=== PATIENT | female | born 1965 | race Asian ===

== ENCOUNTER → 2021-12-30 10:13 | Outpatient (CLI) | payer OTHER, SELFPAY ==
--- NOTE | ~2021-12-30 | MM_ITS ---
EXAMINATION: MM screening deepika BI w heidi HISTORY: Screening mammogram TECHNIQUE: Craniocaudal and mediolateral oblique 3-D tomosynthesis images were obtained and synthetic 2-D images were generated. Bilateral rotated lateral CC views. CAD analysis was submitted and interp reted. COMPARISON: 10/02/2018 bilateral screening mammogram and complete bilateral breast ultrasound 08/22/2017, 04/26/2016 bilateral screening mammogram examinations BREAST PARENCHYMAL COMPOSITION: The breasts are heterogeneously dense, which may obscure small masses . FINDINGS: There is no evidence of suspicious mass, calcification, or architectural distortion to sugg est malignancy in either breast. There has been no suspicious interval change. IMPRESSION: 1. No mammographic evidence of malignancy. 2. Recommend routine screening mammography in one year. BI-RADS Category 1: Negative Reviewed, dictated and finalized at location A.
== END ==
DX: Z12.31 Encounter for screening mammogram for malignant neoplasm of breast (principal)
CPT/HCPCS: 77063; 77067

== ENCOUNTER 2024-11-22 13:23 | Outpatient (CLI) | payer OTHER, SELFPAY ==
--- NOTE | ~2024-11-22 | MM_ITS ---
EXAMINATION: MM screening deepika BI w heidi HISTORY: Screening TECHNIQUE: Craniocaudal and mediolateral oblique 3-D tomosynthesis images were obtained and synthetic 2-D images were generated. CAD analysis was submitted and interpreted. COMPARISON: Comparison to multiple prior studies sequentially, with oldest reviewed study dated 04/26. BREAST PARENCHYMAL COMPOSITION: Dense: The breasts are heterogeneously dense, which may obscure small masses FINDINGS: There is a subtle obscured mass in the medial aspect of the left breast on CC view, middle third. The right breast is stable without evidence for malignancy. IMPRESSION: 1. Subtle obscured left breast mass medially on CC view, middle third. 2. Additional mammographic views and possible breast ultrasound are recommended. BI-RADS Category 0: Incomplete: Needs additional imaging evaluation. Reviewed, dictated and finalized at location B. IMPRESSION: 1. Subtle obscured left breast mass medially on CC view, middle third. 2. Additional mammographic views and possible breast ultrasound are recommended . BI-RADS Category 0: Incomplete: Needs additional imaging evaluation.
== END 2024-11-22 13:24 | disposition home or self-care (01) ==
LOC: MICIMG 13:24
PROVIDERS: PCP Family Medicine; Visit Provider Family Medicine
DX: Z12.31 Encounter for screening mammogram for malignant neoplasm of breast (principal); R92.8 Other abnormal and inconclusive findings on diagnostic imaging of breast
CPT/HCPCS: 77063; 77067

== ENCOUNTER 2024-12-17 08:54 | Outpatient (CLI) | payer OTHER, SELFPAY ==
--- NOTE | ~2024-12-17 | MMUS_ITS ---
EXAMINATION: MM diagnostic deepika LT w heidi, US breast LT limited HISTORY: Left breast mass TECHNIQUE: Additional 3-D tomosynthesis images of the left breast were performed and synthetic 2-D im ages were generated. CAD analysis was submitted and interpreted. High resolution limited left breast ultrasound was performed. COMPARISON: 11/22/2024, 12/30/2021 BREAST PARENCHYMAL COMPOSITION:Dense: The breasts are heterogeneously dense, which may obscure small masses. FINDINGS: MAMMOGRAPHIC FINDINGS: The area of concern at the inner left breast effaces on spot compression. No definite mass lesion or distortion seen. No suspicious microcalcification. ULTRASOUND: At the 12:00 position left breast, 4 cm from the nipple, there is a 6 x 5 x 7 mm hypoechoic round mas s with posterior through transmission. IMPRESSION: 7 mm hypoechoic mass at the 12:00 position left breast, 4 cm from the nipple. This is probably benig n. Six-month follow-up ultrasound recommended to reassess. BI-RADS category 3, probably benign findings. Reviewed, dictated and finalized at location M. IMPRESSION: 7 mm hypoechoic mass at the 12:00 position left breast, 4 cm from the nipple. This is probably benign. Six-month follow-up ultrasound recommended to reassess . BI-RADS category 3, probably benign findings.
== END 2024-12-17 08:55 | disposition home or self-care (01) ==
LOC: MICIMG 08:55
PROVIDERS: PCP Family Medicine; Visit Provider Family Medicine
DX: R92.8 Other abnormal and inconclusive findings on diagnostic imaging of breast (principal); N63.22 Unspecified lump in the left breast, upper inner quadrant
CPT/HCPCS: 76642; 77061; 77065; G0279

== ENCOUNTER 2025-02-14 07:40 | Outpatient (CLI) | payer OTHER, SELFPAY ==
--- NOTE | ~2025-02-14 | MR_ITS ---
MRI of the abdomen: Clinical indication: Dilated bile duct. Technique: Coronal SSFSE ARC, WATER:coronal LAVA-FLEX, Coronal 2D FIESTA FatSat, Axial SSFSE BH ARC, Axial 3D DualEcho BH, Axial SSFSE-IR, Axial DWI b=500, Axial 2D FIESTA FatSat, pre and dynamic postco ntrast Axial LAVA ARC, postcontrast Coronal In and Opposed phase LAVA FLEX. Following intravenous adm inistration of 13 cc MultiHance gadolinium, T1-weighted fat-sat imaging was performed in the axial an d coronal planes. Findings: Gallbladder unremarkable. The common bile duct is mildly dilated to 9 mm. No filling defect s are seen within the CBD. No evidence of intrahepatic biliary ductal dilatation. The pancreatic duct is normal in size. Liver, spleen, pancreas, adrenals, kidneys appear normal, aside from simple left renal cyst. The aort a and the paraaortic regions appear normal. No abnormal postcontrast enhancement identified. Impression: Mildly dilated common bile duct to 9 mm. No other significant abnormality of the liver or biliary sys tem seen. Correlate with LFTs. Reviewed, dictated and finalized at location M. Impression: Mildly dilated common bile duct to 9 mm. No other significant abnormality of th e liver or biliary system seen. Correlate with LFTs.
--- OUTSIDE RECORDS SUMMARY | 2025-02-14 07:45 | XMS_ITS | Clinical Summary ---
Author Organization [facility] Address [address] [facility] [address] [place] [phone] Phone Care Team Providers Care Phone Counselor Name Role Phone Sabrina Sylvester MD Primary Care Provi leesa Allergies No known active allergies Medications cholecalciferol 25 mcg (1,000 unit) tablet Take 1 tablet (1,000 Units total) by mouth daily Active multivit no.40/iron/folat 1/dha (MULTIVIT 62-NFEP-MMEUZU 1-DHA ORAL) Take by mouth Active lactobacillus combination no.4 (Probiotic) 3 billion cell capsule Take by mouth Active Active Problems Patient Care Coordination No te Formatting of this note migh t be different from the original. Referring provider: Dr. Gonzalez referral Ms. Carter Slaughter is a 58-year-old Vietnamese speaking female with a mediastinal mass. Patient was in [place] and underwent imaging of the chest and was told that she had a mass or cyst in her chest in December of 2022. On 04/21/2023 the patient underwent an MRI of the chest with and without contrast which showed an oval T2 hyperintense mass with circumscribed margins identified in the anterior mediastinum abutting the ascending aorta. This measures 2.1 x 1.2 by 2.7 cm. 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 Patient presents today for further surgical evaluation. Problem Noted Date Diagnosed Date Well adult exam 05/16/2024 Overview (05/16/2024): Reviewed working on a heart healthy diet and activity to her level. Health Maintenance: Last PAP: 2022- in [place], normal per the patient Last mammogram: December 2022 in [place]- normal Last colonoscopy/cologuard: Last Tdap: up to date Last Shingrix: up to date Last Flu: scheduled Last COVID: up to date Test results: if you have not received communication about test results within 7 days of the test being performed, please contact the office. I strongly encourage myChart sign ups. It can facilitate communication flow. Please contact the office for instructions on signing up. Assessment & Plan (05/16/2024 2:37 PM CDT): Reviewed working on a heart healthy diet and activity to her level. Health Maintenance: Last PAP: 2022- in [place], normal per the patient Last mammogram: December 2022 in [place]- normal Last colonoscopy/cologuard: Last Tdap: up to date Last Shingrix: up to date Last Flu: scheduled Last COVID: up to date Test results: if you have not received communication about test results within 7 days of the test being performed, please contact the office. I strongly encourage myChart sign ups. It can facilitate communication flow. Please contact the office for instructions on signing up. 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 Through shared decision-making, we decided to follow up on the MRI for her kidney and see if the changes are stable. 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/26/2023 Assessment & Plan (05/16/2024 5:15 PM CDT): MRI reviewed No further follow-up indicated at this time IFG (impaired fasting glucose) 05/26/2023 Overview (05/26/2023): chronic, stable continue healthy changes follow up labs re-ordered Assessment & Plan (05/16/2024 5:15 PM CDT): Chronic, stable Continue healthy lifestyle changes Update me with changes or concerns Encounters Date Type Department Care Team Description [address] [phone] Sabrina Sylvester MD 12/26/[address] [phone] Sabrina Sylvester MD Medical Question/Miscellane ous 12/22/2024 Results Follow-Up [address] [phone] Sabrina Sylvester MD HM MAMMOGRAPHY 12/16/[address] [phone] Sabrina Sylvester MD fyi 11/28/2024 11:07 AM CDT - 11/28/2024 11:59 PM CDT Hospital Encounter [facility] Ultrasound [facility] [place] [address] Nontoxic single thyroid nodule Discharge Disposition: Discharge to home or self care 11/25/2024 Orders Only [facility] Medicine [address] [place] [phone] Sabrina Sylvester MD Abnormal mammogram (Primary Dx) 11/22/2024 Telephone [facility] [address] [place] [phone] Sabrina Sylvester MD from Last 3 Months Immunizations Immunization Administration Dates Next Due Hep A / Hep B 07/11/2007 Influenza, Quadrivalent, Spl it, Intramuscular 09/06/2018 Influenza, Quadrivalent, Spl it, Preservative Free, Intramuscular 05/19/2021 Influenza, Trivalent, IM (MDV) 07/11/2017 Influenza, Unspecified 05/21/2024,2023(Deferred: Patient Refused),05/08/2023,05/07/2022 Tdap 05/26/2023 ZOSTER Recombinant 08/11/2021,04/09/2021 Surgical History Surgery Date Site/Laterality Comments THORACOSCOPY 08/07/2013 - 08/06/2014 Medical History Medical History Date Comments Thyroid nodule Pre-diabetes Mediastinal mass Family History Medical History Relation Name Comments No Known Problems Brother 1 No Known Problems Brother 2 Heart disease Father Mike Slaughter Diabetes Mother Tobi Crowder Heart disease Mother Tobi Crowder Hypertension Mother Tobi Crowder No Known Problems Sister Relation Name Status Comments Brother 1 Alive Brother 2 Alive Father Mike Slaughter Maternal Grandfather Maternal Grandmother Mother Tobi Crowder Paternal Grandfather Paternal Grandmother Sister Alive Social History Tobacco Use Types Packs/Day Years Used Date Smoking Tobacco: Never Smokeless Tobacco: Never AUDIT-C Answer Date Recorded Q1: How often do you have a drink containing alcohol? Never 05/16/2024 Q2: How many drinks containi ng alcohol do you have on a typical day when you are drinking? Patient does not drink Q3: How often do you have si x or more drinks on one occasion? 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 Gender Identity Not on file Sexual Orientation Not on file Obstetrics History Last Filed Vital Signs Vital Sign Reading Time Taken Comments Blood Pressure 102/62 05/16/2024 2:09 PM CDT Pulse 89 05/16/2024 2:09 PM CDT Temperature 36.4 C (97.6 F) 05/16/2024 2:09 PM CDT Respiratory Rate 12 05/16/2024 2:09 PM CDT Oxygen Saturation 97% 05/16/2024 2:09 PM CDT Inhaled Oxygen Concentration - - Weight 60.6 kg (133 lb 11.2 oz) 05/16/2024 2:09 PM CDT Height 154.9 cm (5' 1) 05/16/2024 2:09 PM CDT Body Mass Index 25.26 05/16/2024 2:09 PM CDT Plan of Treatment Health Maintenance Due Date Last Done Comments Covid-19 Vaccine ( season) 2024 08/18/2023, 07/25/2022, 06/24/2021, Additional history exists Influenza Vaccine (#1) 2025 , 05/08/2023, 05/07/2022, Additional history exists Depression Screening 05/16/2025 05/16/2024, 05/26/2023, 05/26/2023 Regular Well Visit/Exam 18-64 05/16/2025 05/16/2024 Breast Cancer Screening-Mammogram 12/17/2025 12/17/2024, 12/29/2022, 08/22/2017 Cervical Cancer Screening 12/20/2027 Colon Cancer Screening-Colonoscopy 12/29/2032 12/29/2022 DTaP/Tdap/Td Vaccine (2 - Td or Tdap) 05/26/2033 05/26/2023 Hepatitis B Screening Completed 07/11/2007 Zoster Vaccine Completed 08/11/2021, 04/09/2021 Hepatitis C Screening Completed 09/15/2023 Pneumococcal vaccine <65 Aged Out No longer eligible based on patient's age to complete this topic Procedures Procedure Name Priority Date/Time Associated Diagnosis Comments HM MAMMOGRAPHY Routine 12/17/2024 US THYROID Schedule Routine, Read Routine (OP Routine) 11/28/2024 11:47 AM CDT Nontoxic single thyroid nodule HEPATITIS C ANTIBODY Routine 09/15/2023 8:31 AM PLASTIC EXTRUDING MACHINE OPERATOR from Last 3 Months or Most Recently Relevant to Health Maintenance Results * HM MAMMOGRAPHY (12/17/2024) 12/17/2024 us Historical Provider HEALTH MAINTENANCE Final Result * US Thyroid (11/28/2024 11:47 AM CDT) Anatomical Region Laterality Modality Head and Neck N/A Ultrasound 12/11/2024 1:23 PM CDT Narrative 12/11/2024 1:32 PM CDT EXAM DESCRIPTION: US THYROID REASON FOR STUDY: E04.1 TECHNIQUE: Ultrasound of the thyroid was performed with grayscale and color doppler. COMPARISON: 11/28/2023. FINDINGS: RIGHT: The right thyroid lobe measures 4.1 x 1.6 x 2.1 cm. The right thyroid lobe is normal in echotexture. LEFT: The left thyroid lobe measures 4.4 x 1.2 x 0.9 cm. The left thyroid lobe is normal in echotexture. ISTHMUS: The isthmus measures 0.2 cm in AP dimension. The isthmus is normal in echotexture. VASCULARITY: Normal. OTHER: No other significant finding. Nodules: Nodule: 1 Location: Right mid Size: 1.9 x 1.3 x 1.6 cm, previously 1.8 x 1.2 x 1.4 cm, not substantially changed, allowing for differences in technique Composition: Solid (2) Echogenicity: Hypoechoic (2) Shape: Taller than wide (3) Margins: Smooth or Ill-defined (0) Echogenic foci: None (0) Additional Echogenic foci: None (0) ACR TI-RADS total points: >7 ACR TI-RADS risk category: TR5 (highly suspicious) ACR TI-RADS recommendation: Please correlate with prior biopsy results. Nodule: 2 Location: Right inferior Size: 0.6 x 0.6 x 0.6 cm, previously 0.5 x 0.5 x 0.6 cm, not substantially changed, allowing for differences in technique. Composition: Solid (2) Echogenicity: Hypoechoic (2) Shape: Not taller than wide (0) Margins: Smooth or Ill-defined (0) Echogenic foci: None (0) Additional Echogenic foci: None (0) ACR TI-RADS total points: 4 ACR TI-RADS risk category: TR4 (moderately suspicious) ACR TI-RADS recommendation: No followup is necessary. IMPRESSION: No substantial change in the TI-RADS 5 1.9 cm right mid thyroid nodule, allowing for differences in technique. Please correlate with prior biopsy results. No substantial change in 0.6 cm TI-RADS 4 right inferior thyroid nodule, allowing for differences in technique. ACR TI-RADS Risk Category: 5 REFERENCE: According to the ACR Thyroid Imaging, Reporting and Data System (TI-RADS): White Paper of the ACR TI-RADS Committee Dec, 2016 recommendations regarding the management of thyroid nodules are as follows: 1. TI-RADS 1: Risk of malignancy <2%, no FNA or follow up required. 2. TI-RADS 2: Risk of malignancy <2%, no FNA or follow up required. 3. TI-RADS 3: Risk of malignancy 2%-5%. Nodules 1.5 cm or greater follow up at 1, 3 and 5 years recommended, for nodules 2.5 cm or greater FNA recommended. 4. TI-RADS 4: Risk of malignancy 5%-20% Nodules 1.0 cm or greater follow up at 1, 2, 3 and 5 years recommended, for nodules 1.5 cm or greater FNA recommended 5. TI-RADS 5: Risk of malignancy >20%. Nodules 0.5 cm or greater annual follow up for 5 years recommended, for nodules 1.0 cm or greater FNA recommended. The ACR TI-RADS committee recommends targeting no more than two nodules for FNA. If three or more nodules meet criteria for FNA, the two with the most suspicious appearance based on ACR TI-RADS points should be sampled. THIS IS AN ELECTRONICALLY VERIFIED FINAL REPORT 12/11/2024 1:32 PM - Electronically signed by Dane Cerna M.D. MZ: RASHID Report ID: [id number] Reading Location: [id number] Procedure Note Dane Cerna MD - 12/11/2024 EXAM DESCRIPTION: US THYROID REASON FOR STUDY: E04.1 TECHNIQUE: Ultrasound of the thyroid was performed with grayscale andcolor doppler. COMPARISON: 11/28/2023. FINDINGS: RIGHT: The right thyroid lobe measures 4.1 x 1.6 x 2.1 cm.The right thyroid lobe is normal in echotexture. LEFT: The left thyroid lobe measures 4.4 x 1.2 x 0.9 cm. The leftthyroid lobe is normal in echotexture. ISTHMUS: The isthmus measures 0.2 cm in AP dimension. The isthmus isnormal in echotexture. VASCULARITY: Normal. OTHER: No other significant finding. Nodules: Nodule: 1 Location: Right mid Size: 1.9 x 1.3 x 1.6 cm, previously 1.8 x 1.2 x 1.4 cm, notsubstantially changed, allowing for differences in technique Composition: Solid (2) Echogenicity: Hypoechoic (2) Shape: Taller than wide (3) Margins: Smooth or Ill-defined (0) Echogenic foci: None (0) Additional Echogenic foci: None (0) ACR TI-RADS total points: >7 ACR TI-RADS risk category: TR5 (highly suspicious) ACR TI-RADS recommendation: Please correlate with prior biopsy results. Nodule: 2 Location: Right inferior Size: 0.6 x 0.6 x 0.6 cm, previously 0.5 x 0.5 x 0.6 cm, notsubstantially changed, allowing for differences in technique. Composition: Solid (2) Echogenicity: Hypoechoic (2) Shape: Not taller than wide (0) Margins: Smooth or Ill-defined (0) Echogenic foci: None (0) Additional Echogenic foci: None (0) ACR TI-RADS total points: 4 ACR TI-RADS risk category: TR4 (moderately suspicious) ACR TI-RADS recommendation: No followup is necessary. IMPRESSION: No substantial change in the TI-RADS 5 1.9 cm right mid thyroid nodule, allowing for differences in technique. Please correlate with prior biopsy results. No substantial change in 0.6 cm TI-RADS 4 right inferior thyroid nodule, allowing for differences in technique. ACR TI-RADS Risk Category: 5 REFERENCE: According to the ACR Thyroid Imaging, Reporting and Data System (TI-RADS): White Paper of the ACR TI-RADS Committee Dec, 2016recommendations regarding the management of thyroid nodules are as follows: 1. TI-RADS 1: Risk of malignancy <2%, no FNA or follow up required. 2. TI-RADS 2: Risk of malignancy <2%, no FNA or follow up required. 3. TI-RADS 3: Risk of malignancy 2%-5%. Nodules 1.5 cm or greater followup at 1, 3 and 5 years recommended, for nodules 2.5 cm or greater FNArecommended. 4. TI-RADS 4: Risk of malignancy 5%-20% Nodules 1.0 cm or greater followup at 1, 2, 3 and 5 years recommended, for nodules 1.5 cm or greater FNA recommended 5. TI-RADS 5: Risk of malignancy >20%. Nodules 0.5 cm or greater annual follow up for 5 years recommended, for nodules 1.0 cm or greater FNA recommended. The ACR TI-RADS committee recommends targeting no more than two nodulesfor FNA. If three or more nodules meet criteria for FNA, the two with themost suspicious appearance based on ACR TI-RADS points should be sampled. THIS IS AN ELECTRONICALLY VERIFIED FINAL REPORT 12/11/2024 1:32 PM - Electronically signed by Dane Cerna M.D. MZ: MZ Report ID: [id number] Reading Location: [place] [address] Roni Stevens MD [facility] US PROCEDURES Fin al Result * Hepatitis C antibody (09/15/2023 8:31 AM PLASTIC EXTRUDING MACHINE OPERATOR) Hep C Ab NON-REACTI VE NON-REACT STEPHANIE [facility] Comment: HCV antibody was non-reactive. There is no laboratory evidence of HCV infection. In most cases, no further action is required. However, if recent HCV exposure is suspected, a test for HCV RNA (test code 89026) is suggested. For additional information please refer to http://education.[employer]/faq/QUF95c0 (This link is being provided for informational/ educational purposes only.) 09/15/2023 8:31 AM PLASTIC EXTRUDING MACHINE OPERATOR 09/15/2023 8:33 AM PLASTIC EXTRUDING MACHINE OPERATOR Narrative [facility] - 09/17/2023 12:56 PM PLASTIC EXTRUDING MACHINE OPERATOR FASTING:YES FASTING: YES us Sabrina Sylvester MD LAB MICROBIOLOGY - GENERAL ORDERABLES Final Result YA [facility] [address] [place] [address] from Last 3 Months or Most Recently Relevant to Health Maintenance Insurance [employer] [facility] [address] [facility] [id number] [facility] [id number] Care Teams Phone Counselor Relationship Specialty Start Date End Date Sabrina Sylvester MD [address] [place] [phone] PCP - General Family Medicine 05/10/23
--- OUTSIDE RECORDS SUMMARY | 2025-02-14 07:45 | XMS_ITS | Clinical Summary ---
Author Organization [facility] Address [address] [place] [phone] Care Team Providers Care Rivet Sorter Name Role Phone Akosua Burnett MD Primary Care Provider [phone] Allergies No known active allergies Medications multivitamin (DAILY-SOY) tablet Take 1 Tablet by mouth daily. Active cholecalciferol, Vitamin D3, (Vitamin D3) 25 mcg (1,000 unit) Capsule Take by mouth daily. Active L. acidophilus/L. rhamnosus (PROBIOTIC ORAL) Take by mouth. Active zoster vaccine recombinant, adjuvanted, RZV, (SHINGRIX) 50 mcg/0.5 mL Suspension for Reconstitution Pharmacist to administer per protocol. 1 Each 1 04/09/2021 11:13 AM CDT 1 Active Active Problems Problem Noted Date Diagnosed Date Abnormal thyroid exam 09/06/2018 Encounter for routine adult health examination without abnormal findings 09/06/2018 Screening for malignant neoplasm of breast 09/06 Renal cyst 09/06/2018 Dense breast tissue on mammogram 09/06/2018 Cervical radiculopathy 08/09/2018 Neck pain 08/09/2018 Immunizations Immunization Administration Dates Next Due (PFIZER)(12 YR UP) COVID-19 VACCINE - EMERGENCY USE AUTHORIZATION, MRNA, [id number](PF) 30 MCG/0.3 ML IM SUSP 10/25/2020,10/03/2020 (SHINGRIX)(50 YRS UP) ZOSTER VACCINE RECOMBINANT, 0.5 ML, IM 04/09/2021 INFLUENZA VACCINE QUADRIVALENT 6 MOS UP IM 09/06 Influenza Vaccine Quad Split 18 Yrs+ Pf Im 05/19 Influenza Vaccine Tri Split 4+ Im 07/11/2017 Family History Medical History Relation Name Comments Diabetes Mother Hypertension Mother Parkinson's Disease Mother Relation Name Status Comments Brother 1 Alive Brother 2 Alive Father Alive Mother Alive Sister Alive Social History Tobacco Use Types Packs/Day Years Used Date Smoking Tobacco: Never Smokeless Tobacco: Never Alcohol Use Standard Drinks/Week Comments No 0 (1 standard drink = 0.6 oz pur e alcohol) Comments Unknown Sex and Gender Information Value Date Recorded Sex Assigned at Not on file Legal Sex Female 11:07 PM CDT Gender Identity Not on file Sexual Orientation Not on file Last Filed Vital Signs Vital Sign Reading Time Taken Comments Blood Pressure 120/80 04/09/2021 10:26 AM CDT Pulse 76 04/09/2021 10:26 AM CDT Temperature 36.2 C (97.2 F) 04/09/2021 10:26 AM CDT Respiratory Rate - - Oxygen Saturation 96% 04/09/2021 10: 26 AM CDT Inhaled Oxygen Concentration - - Weight 63.4 kg (139 lb 12.8 oz) 021 10:26 AM CDT Height 154.9 cm (5' 1) 04/09/2021 10:2 6 AM CDT Body Mass Index 26.41 04/09/2021 10:26 AM CDT Plan of Treatment Health Maintenance Due Date Last Done Comments DTAP/TDAP/TD VACCINES (1 - Tdap) 01/30/1984 HPV/Cotest (21-29) 1986 CERVICAL CANCER SCREENING 1995 HPV/Cotest (30-65) 1995 PAP SMEAR 1995 COLORECTAL SCREENING 2010 Colorectal Cancer Screening 2010 FIT-DNA Q 3 years 2010 FIT/FOBT Q 1 year 2010 Flex Sig/CT Colonography Q 5 years 2010 BREAST CANCER SCREENING 08/22/2018 08/22/2017 ZOSTER VACCINE (2 of 2) 06/04/2021 04/09/2021 COVID-19 Vaccine (3 - 2023-2 5 season) 2024 10/25/2020, 10/03/2020 Preventative Visit- Commercial 08/07/2024 04/09/2021, 09/06/2018 INFLUENZA VACCINE (#1) 2025 , 09/06/2018, 07/11/2017 RSV VACCINE (60+ or ) (1 - 1-dose 75+ series) 01/30/2040 HEPATITIS B VACCINES Aged Out No long er eligible based on patient's age to complete this topic Procedures Procedure Name Priority Date/Time Associated Diagnosis Comments MAMMO 3D BABAR SCREEN BILAT W OR WO CAD Routine 08/22/2017 from Last 3 Months or Most Recently Relevant to Health Maintenance Results * MAMMO SCRN BILAT 3D BABAR W OR WO CAD (08/22/2017) Anatomical Region Laterality Modality Breast Bilateral Mammography us Abstract Provider MAMMO ORDERABLES Edited Result - Final from Last 3 Months or Most Recently Relevant to Health Maintenance Insurance [employer] [facility] Address: [address] [phone] [facility] [employer] Care Teams Rivet Sorter Relationship Specialty [place] [id number] [phone] PCP - General Internal Medicine 09/06/18
--- OUTSIDE RECORDS SUMMARY | 2025-02-14 07:45 | XMS_ITS | Referral Summary ---
Author Organization [facility] Address [address] [facility] [address] [place] [phone] Phone Care Team Providers Care Polisher Implant Name Role Phone Sabrina Sylvester MD Primary Care Provi leesa Encounters Date Type Department Care Team Description 2025 Telephone [facility] Family Medicine [address] [phone] Sabrina Sylvester MD 12/26/2024 Telephone [facility] Medicine [address] [phone] Sabrina Sylvester MD Medical Question/Miscellane ous 12/22/2024 Results Follow-Up [facility] Family Medicine [address] [place] [phone] Sabrina Sylvester MD HM MAMMOGRAPHY 12/16/2024 Telephone [facility] Family Medicine [address] [phone] Sabrina Sylvester MD fyi 11/28/2024 11:07 AM CDT - 11/28/2024 11:59 PM CDT Hospital Encounter [facility] Ultrasound [facility] [place] [address] Nontoxic single thyroid nodule Discharge Disposition: Discharge to home or self care 11/25/2024 Orders Only [facility] [address] [phone] Sabrina Sylvester MD Abnormal mammogram (Primary Dx) 11/22/2024 Telephone [facility] [address] [phone] Sabrina Sylvester MD from Last 3 Months Allergies No known active allergies Medications cholecalciferol 25 mcg (1,000 unit) tablet Take 1 tablet (1,000 Units total) by mouth daily Active multivit no.40/iron/folat 1/dha (MULTIVIT 96-[id number]-[id number] 1-DHA ORAL) Take by mouth Active lactobacillus combination no.4 (Probiotic) 3 billion cell capsule Take by mouth Active Active Problems Patient Care Coordination No te Formatting of this note migh t be different from the original. Referring provider: Self referral Ms. 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 Patient [...] please contact the office. I strongly encourage [employer] sign ups. It can facilitate communication flow. [...] changes Update me with changes or concerns Immunizations Immunization Administration Dates Next Due Hep A / Hep B 07/11/2007 Influenza, Quadrivalent, Spl it, Intramuscular 09/06/2018 Influenza, Quadrivalent, Spl it, Preservative Free, Intramuscular 05/19/2021 Influenza, Trivalent, IM (MDV) 07/11/2017 Influenza, Unspecified 05/21/2024,2023(Deferred: Patient Refused),05/08/2023,05/07/2022 Tdap 05/26/2023 ZOSTER Recombinant 08/11/2021,04/09/2021 Social History Tobacco Use Types Packs/Day Years [...] on file Legal Sex Female 11:36 AM DEPARTMENT CHAIRPERSON Gender Identity Not on file Sexual Orientation [...] 05/16/2024 2:09 PM CDT Plan of Treatment Not on file Procedures Procedure Name Priority Date/Time Associated Diagnosis Comments HM MAMMOGRAPHY Routine 12/17/2024 US THYROID Schedule Routine, Read Routine (OP Routine) 11/28/2024 11:47 AM CDT Nontoxic single thyroid nodule HEPATITIS C ANTIBODY Routine 09/15/2023 8:31 AM DEPARTMENT CHAIRPERSON from Last 3 Months or Most Recently [...] Dane Cerna M.D. MZ: MZ Report ID: [id number] Reading Location: [place] [address] Procedure Note Dane Cerna MD - 12/11/2024 [...] Dane Cerna M.D. MZ: RASHID Report ID: [id number] Reading Location: [place] [address] Roni Stevens MD IM US PROCEDURES Fin al Result * Hepatitis C antibody (09/15/2023 8:31 AM DEPARTMENT CHAIRPERSON) Hep C Ab NON-REACTI VE NON-REACT [facility] Comment: HCV antibody was non-reactive. There is no laboratory evidence of HCV infection. In most cases, no further action is required. However, if recent HCV exposure is suspected, a test for HCV RNA (test code 46212) is suggested. For additional information please refer to http://education.[employer]/faq/GIJ50y5 (This link is being provided for informational/ educational purposes only.) 09/15/2023 8:31 AM DEPARTMENT CHAIRPERSON 09/15/2023 8:33 AM DEPARTMENT CHAIRPERSON Narrative [facility] - 09/17/2023 12:56 PM DEPARTMENT CHAIRPERSON FASTING:YES FASTING: YES us Sabrina Sylvester MD LAB MICROBIOLOGY - GENERAL ORDERABLES Final Result [facility] [address] [place] [phone] from Last 3 Months or Most Recently Relevant to Health Maintenance Insurance [employer] [facility] [id number] [facility] [id number] Care Teams Polisher Implant Relationship Specialty Start Date End Date Sabrina Sylvester MD [address] [place], [place] [address] PCP - General Family Medicine 05/10/23
== END 2025-02-14 07:41 | disposition home or self-care (01) ==
PROVIDERS: PCP Family Medicine; Visit Provider Family Medicine
DX: N28.1 Cyst of kidney, acquired (principal); K83.8 Other specified diseases of biliary tract
CPT/HCPCS: 74183; 76376; A9577